=== PATIENT | male | born 1975 | race Caucasian/White ===

== ENCOUNTER 2019-02-06 10:33 | Outpatient (CLI) | payer OTHER, SELFPAY ==
[2019-02-06 12:17] LABS: TSH (W/Ref FT4) 0.66 uIU/mL (0.358-3.74)
== END 2019-02-06 10:53 ==
PROVIDERS: PCP Nurse Practitioner Family; Visit Provider Nurse Practitioner Family
DX: F45.8 Other somatoform disorders (principal)
CPT/HCPCS: 36415; 84443

== ENCOUNTER 2019-02-06 13:13 | Outpatient (CLI) | payer OTHER, SELFPAY ==
--- NOTE | 2019-02-06 13:04 | DI.US_ITS ---
SYMPTOMS/DIAGNOSIS: GLOBUS SENSATION, E45.8, PT FEELS LUMP IN RIGHT NECK THYROID ULTRASOUND: Routine examination was performed. The right lobe measures 5.5 x 1.8 x 2.0 cm. In the superior pole, there is a 0.6 x 0.6 x 0.9 cm complex thyroid mass with internal blood flow. There is an echogenic focus seen within the lesion. There is a 0.8 x 0.3 x 0.6 cm complex cystic lesion in the inferior pole of the right lobe of the thyroid gland. The solid components do exhibit vascularity. There are two avascular lesions seen within the right lobe, the larger measuring 0.4 cm. They are predominantly cystic. The left lobe measures 5.6 x 1.9 x 2.1 cm. Multiple nodules are seen. There is a 0.9 x 0.5 x 0.8 cm solid nodule in the mid pole of the left lobe. It does display internal vascularity. There is a cystic lesion measuring 1.1 x 0.5 x 1.2 cm in the upper pole. There is a small solid component associated with this lesion. No internal blood flow is seen. There is a complex 0.9 x 0.8 x 1.2 cm cystic and solid lesion in the inferior pole of the left lobe of the thyroid gland. There is some internal blood flow noted. There is an adjacent 1.1 x 0.4 x 0.7 cm solid hypoechoic nodule in the lower pole with some internal blood flow. The isthmus is within normal limits at 0.2 cm. Benign-appearing lymph nodes are seen in the neck. IMPRESSION: Multinodular thyroid gland. Nodules range from cystic to solid with most of the nodules having a complex makeup. Followup may include a nuclear medicine uptake and scan. While benign nodules should be considered, neoplasm cannot be entirely excluded in any of these nodules. Followup as clinically appropriate.
== END 2019-02-06 13:33 ==
PROVIDERS: PCP Nurse Practitioner Family; Visit Provider Nurse Practitioner Family
DX: F45.8 Other somatoform disorders (principal); E04.2 Nontoxic multinodular goiter
CPT/HCPCS: 76536

== ENCOUNTER 2019-05-25 08:20 | Outpatient (CLI) | payer OTHER, SELFPAY ==
[2019-05-25 09:30] LABS: ALT 26 U/L (12-78); AST 14 U/L (15-37); Alkaline Phosphatase 73 U/L (46-116); Anion Gap 7.2 mmol/L (3-11); BUN 10 mg/dL (7-18); Bilirubin, Total 0.9 mg/dL (0.2-1.0); CO2 29.8 mmol/L (21.0-32.0); CREATININE 0.98 mg/dL (0.70-1.30); Calcium 8.8 mg/dL (8.5-10.1); Calculated LDL 86 mg/dL; Chloride 105 mmol/L (98-107); Cholesterol 161 mg/dL (50-200); Glucose 91 mg/dL (70-100); HDL Cholesterol 52 mg/dL (40-60); Potassium 4.6 mmol/L (3.5-5.1); Sodium 142 mmol/L (136-145); TSH (W/Ref FT4) 0.72 uIU/mL (0.36-3.74); Total Protein 7.1 g/dL (6.4-8.2); Triglyceride 115 mg/dL (30-150)
== END 2019-05-25 08:40 ==
PROVIDERS: PCP Nurse Practitioner Family; Visit Provider Family Medicine
DX: Z00.00 Encounter for general adult medical examination without abnormal findings (principal); E04.2 Nontoxic multinodular goiter
CPT/HCPCS: 36415; 80053; 80061; 83721; 84443

== ENCOUNTER 2021-02-05 02:12 | Outpatient (CLI) | payer OTHER, SELFPAY ==
[2021-02-05 09:03] LABS: ALT 41 U/L (16-63); AST 19 U/L (15-37); Calculated LDL 114 mg/dL (<100); Cholesterol 205 mg/dL (<200); HDL Cholesterol 55 mg/dL (40-60); TSH (W/Ref FT4) 0.47 uIU/mL (0.36-3.74); Triglyceride 181 mg/dL (<150)
[2021-02-05 11:24] LABS: Glucose 94 mg/dL (74-106)
== END 2021-02-05 02:13 | disposition home or self-care (01) ==
LOC: LBO 02:12
PROVIDERS: PCP Nurse Practitioner Family; Visit Provider Nurse Practitioner Family
DX: Z83.3 Family history of diabetes mellitus (principal); Z00.00 Encounter for general adult medical examination without abnormal findings; E04.2 Nontoxic multinodular goiter; Z13.220 Encounter for screening for lipoid disorders
CPT/HCPCS: 36415; 80061; 82947; 84443; 84450; 84460

== ENCOUNTER 2021-11-18 16:30 | Outpatient (REF) | payer OTHER, SELFPAY ==
[2021-11-18 21:56] LABS: HCT 47.7 % (40.0-50.0); HGB 15.8 g/dL (13.5-17.5); MCH 30.2 pg (27.0-33.0); MCHC 33.1 % (32.0-36.0); MCV 91.2 fL (80-95); MPV 11.2 fL (8.0-11.0); Platelet Count 303 10^3/uL (130-400); RBC 5.23 10^6/uL (4.36-5.78); RDW-SD 43.5 fL; WBC 6.07 10^3/uL (4.4-10.8)
[2021-11-18 22:04] LABS: Anion Gap 5.7 mmol/L (3-11); BUN 15 mg/dL (7-18); CO2 31.3 mmol/L (21.0-32.0); CREATININE 1.2 mg/dL (0.70-1.30); Chloride 105 mmol/L (98-107); Glucose 93 mg/dL (74-106); Potassium 4.8 mmol/L (3.5-5.1); Sodium 142 mmol/L (136-145)
== END 2021-11-18 16:31 | disposition home or self-care (01) ==
LOC: NCHCN 16:30
PROVIDERS: PCP Nurse Practitioner Family; Visit Provider Nurse Practitioner Family
DX: Z00.00 Encounter for general adult medical examination without abnormal findings (principal)
CPT/HCPCS: 80048; 85027

== ENCOUNTER 2023-04-12 08:39 | Outpatient (CLI) | payer OTHER, SELFPAY ==
[2023-04-12 09:31] LABS: Glucose 97 mg/dL (74-106)
[2023-04-12 09:46] LABS: Hemoglobin A1C 5.3 % (<5.7)
[2023-04-12 19:49] LABS: PSA, Screening 1.6 ng/mL (<=2.5)
== END 2023-04-12 08:40 | disposition home or self-care (01) ==
LOC: LBO 08:42
PROVIDERS: PCP Nurse Practitioner Family; Visit Provider Nurse Practitioner Family
DX: Z80.42 Family history of malignant neoplasm of prostate (principal); Z00.00 Encounter for general adult medical examination without abnormal findings
CPT/HCPCS: 36415; 82947; 84153; 83036

== ENCOUNTER 2023-04-13 08:28 | Outpatient (CLI) | payer OTHER, SELFPAY ==
[2023-04-13 08:11] LABS: Calculated LDL 107 mg/dL (<100); Cholesterol 200 mg/dL (<200); HDL Cholesterol 47 mg/dL (40-60); Triglyceride 231 mg/dL (<150)
== END 2023-04-13 08:29 | disposition home or self-care (01) ==
LOC: LBO 08:49
PROVIDERS: PCP Nurse Practitioner Family; Visit Provider Nurse Practitioner Family
DX: Z00.00 Encounter for general adult medical examination without abnormal findings (principal)
CPT/HCPCS: 36415; 80061

== ENCOUNTER 2024-01-03 07:58 | Outpatient (CLI) | payer OTHER, SELFPAY ==
[2024-01-03 07:53] LABS: Calculated LDL 72 mg/dL (<100); Cholesterol 147 mg/dL (<200); Glucose 100 mg/dL (74-106); HDL Cholesterol 52 mg/dL (40-60); Triglyceride 116 mg/dL (<150)
[2024-01-03 18:28] LABS: PSA, Screening 0.7 ng/mL (<=2.5)
== END 2024-01-03 07:59 | disposition home or self-care (01) ==
LOC: LBO 07:58
PROVIDERS: PCP Nurse Practitioner Family; Referring Provider Nurse Practitioner Family; Visit Provider Nurse Practitioner Family
DX: Z80.42 Family history of malignant neoplasm of prostate (principal); Z13.1 Encounter for screening for diabetes mellitus
CPT/HCPCS: 36415; 80061; 82947; 84153